=== PATIENT | female | born 1980 | race Asian ===

== ENCOUNTER 2018-10-30 09:53 | Outpatient (CLI) | payer MEDICAID | END 2018-10-30 09:54 | disposition home or self-care (01) | LOC: LAB 09:53 | PROVIDERS: ATTEND Obstetrics & Gynecology | DX: O46.91 Antepartum hemorrhage, unspecified, first trimester (principal) | CPT/HCPCS: 36415; 84702; 86900; 86901 ==

== ENCOUNTER 2018-10-30 22:57 | Outpatient (CLI) | payer MEDICAID ==
--- NOTE | 2018-10-31 01:23 | Ultrasound Report ---
Reason: VAGINAL BLEEDING,FIRST TRIMESTER Procedure Date: 10/30/2018 Accession Number: [id number] / [id number] Procedure: US - OB First Trimester CPT Code: FULL RESULT: EXAM: FIRST TRIMESTER OBSTETRIC ULTRASOUND (Less than 11 weeks) EXAM DATE: 10/30/2018 11:59 PM. CLINICAL HISTORY: VAGINAL BLEEDING,FIRST TRIMESTER. LMP: 08/25/2018. COMPARISONS: None. TECHNIQUE: Transabdominal and transvaginal ultrasound examination with static image documentation. CLINICAL DATES: EGA 9 weeks 4 days with LAURO 06/01/2019 based on LMP. ASSESSMENT: Gestational Sac: Single intrauterine. Mean gestational sac diameter: 24.7 mm = 7 weeks 1 day. Embryo: CRL (crown-rump length) 5.4 mm = 6 weeks 2 days. Cardiac activity: Not seen. Yolk sac: Not seen. Amniotic fluid: Not accurately assessed at this gestational age. Early placenta: Not visible at this gestational age. Other: No perigestational fluid collection demonstrated. MATERNAL STRUCTURES: Uterus: Anteverted. Possible posterior subserosal fibroid measuring 1.1 x 0.9 x 1.6 cm. Cervix: Closed. Right Ovary/Adnexa: The ovary was not seen due to bowel gas. Left Ovary/Adnexa: The ovary measures 2.9 x 1.9 x 2.0 cm, volume 5.0 cc. Possible corpus luteum cyst measuring 1.8 x 1.3 x 1.2 cm. Free Fluid: None. Other: None. IMPRESSION: 1. Single intrauterine at EGA 6 weeks 2 days with LAURO 06/24/2019 based on crown-rump length, which is discordant with clinical dates. 2. No heartbeat is detected. demise is suspected. Consider sonographic follow-up. RADIA The call report notification system was initiated by Dr. Luis Miguel Degroot at 01:22 AM on 10/31/2018. ADDENDUM: 10/31/18 01:29 The above call report findings were discussed with Irena Salazar by Dr. Luis Miguel Degroot at 01:29 AM on 10/31/2018.
== END 2018-10-30 22:58 | disposition home or self-care (01) ==
LOC: DI 22:57
PROVIDERS: ATTEND Obstetrics & Gynecology
DX: O46.91 Antepartum hemorrhage, unspecified, first trimester (principal); Z3A.01 Less than 8 weeks gestation of pregnancy
CPT/HCPCS: 36415; 76801; 76817; 84702; 86900; 86901

== ENCOUNTER 2018-11-02 05:38 | Outpatient (CLI) | payer MEDICAID ==
--- NOTE | 2018-11-02 11:57 | Ultrasound Report ---
Reason: VAGINAL BLEEDING,FIRST TRIMESTER,UTERINE SIZE DATE Procedure Date: 11/02/2018 Accession Number: [id number] / [id number] Procedure: US - OB First Trimester CPT Code: FULL RESULT: EXAM: FIRST TRIMESTER OBSTETRIC ULTRASOUND (Less than 11 weeks) EXAM DATE: 11/02/2018 05:49 AM. CLINICAL HISTORY: Vaginal bleeding, first trimester, uterine size date. LMP: 08/25/2018. COMPARISONS: OB FIRST TRIMESTER 10/30/2018 11:59 PM. TECHNIQUE: Transabdominal and transvaginal ultrasound examination with static image documentation. CLINICAL DATES: EGA 9 weeks 6 days with LAURO 06/01/2019 based on LMP. ASSESSMENT: Gestational Sac: Single intrauterine. Mean gestational sac diameter: 26 mm = weeks/days. Embryo: Potential CRL (crown-rump length) 5 mm = 6 weeks 2 days. Please note that this is the same structure previously measured as a potential crown-rump length. Cardiac activity: None detected. Yolk sac: Not seen. Amniotic fluid: Not accurately assessed at this gestational age. Early placenta: Not visible at this gestational age. Other: No perigestational fluid collection demonstrated. MATERNAL STRUCTURES: Uterus: Anteverted. 1.4 x 0.8 x 1.5 cm subserosal fibroid was noted. Cervix: Closed. Right Ovary/Adnexa: The ovary measures 2.8 x 1.6 x 1.9 cm, volume 4.4 cc. Unremarkable. Left Ovary/Adnexa: The ovary measures 3.1 x 3 x 2.6 cm, volume 12.4 cc. Corpus luteum measuring 2.2 x 1 x 1.8 cm is noted. Free Fluid: None. Other: None. IMPRESSION: Intrauterine of uncertain viability with findings suspicious for failure. Recommend correlation with serial beta hCG and, if appropriate, follow-up ultrasound in 7-10 days to assess for viability. RADIA
== END 2018-11-02 05:39 | disposition home or self-care (01) ==
LOC: DI 05:38
PROVIDERS: ATTEND Obstetrics & Gynecology
DX: O46.91 Antepartum hemorrhage, unspecified, first trimester (principal); O26.841 Uterine size-date discrepancy, first trimester; O34.11 Maternal care for benign tumor of corpus uteri, first trimester; D25.2 Subserosal leiomyoma of uterus; O34.81 Maternal care for other abnormalities of pelvic organs, first trimester; N83.12 Corpus luteum cyst of left ovary; Z3A.01 Less than 8 weeks gestation of pregnancy
CPT/HCPCS: 76801; 76817

== ENCOUNTER 2018-11-08 12:59 | Outpatient (CLI) | payer MEDICAID | END 2018-11-08 13:00 | disposition home or self-care (01) | LOC: LAB 12:59 | PROVIDERS: ATTEND Obstetrics & Gynecology | DX: O20.0 Threatened abortion (principal) | CPT/HCPCS: 36415; 84702 ==

== ENCOUNTER 2018-11-19 12:33 | Outpatient (CLI) | payer MEDICAID ==
--- NOTE | 2018-11-19 19:06 | Ultrasound Report ---
Reason: THREATENED Procedure Date: 11/19/2018 Accession Number: [id number] / [id number] Procedure: US - OB First Trimester CPT Code: FULL RESULT: EXAM: FIRST TRIMESTER OBSTETRIC ULTRASOUND (LESS THAN 11 WEEKS). EXAM DATE: 11/19/2018 02:52 PM. CLINICAL HISTORY: Threatened . LMP: 08/25/2018. COMPARISONS: OB FIRST TRIMESTER 11/02/2018 5:49 AM. TECHNIQUE: Transabdominal and transvaginal ultrasound examination with static image documentation. CLINICAL DATES: EGA 12 weeks 2 days with LAURO 06/01/2019 based on LMP. ASSESSMENT: Gestational Sac: Single intrauterine. Mean gestational sac diameter: 2.9 mm = 7 weeks 5 days. Embryo: None. Previous embryo identified measuring 5 mm. Cardiac activity: None. Yolk sac: None. Amniotic fluid: Not accurately assessed at this gestational age. Early placenta: Not visible at this gestational age. Other: No perigestational fluid collection demonstrated. MATERNAL STRUCTURES: Uterus: Anteverted. Unremarkable. Cervix: Closed. Right Ovary/Adnexa: The ovary measures 3.3 x 1.8 x 2.2 cm. 1.5 x 1.4 x 1.4 cm complex right ovarian cyst with debris and mild peripheral flow. No mural nodules or thickened septations. Left Ovary/Adnexa: The ovary measures 2.9 x 1.8 x 1.9 cm, Unremarkable. Free Fluid: None. Other: None. IMPRESSION: 1. Previously noted embryo not visible on current study. Imaging findings are concerning for demise. 2. No subchorionic hemorrhage or other complications. 3. Mildly complex 1.5 cm right ovary cyst most compatible with a corpus luteum. Otherwise, both ovaries and adnexa are normal. RADIA
== END 2018-11-19 12:34 | disposition home or self-care (01) ==
LOC: DI 12:33
PROVIDERS: ATTEND Obstetrics & Gynecology
DX: O20.0 Threatened abortion (principal); O34.80 Maternal care for other abnormalities of pelvic organs, unspecified trimester; N83.291 Other ovarian cyst, right side; Z3A.00 Weeks of gestation of pregnancy not specified
CPT/HCPCS: 76801

== ENCOUNTER 2019-02-11 14:06 | Outpatient (CLI) | payer MEDICAID ==
--- NOTE | 2019-02-12 09:01 | Ultrasound Report ---
Reason: TEST POSITIVE Procedure Date: 02/11/2019 Accession Number: [id number] / [id number] Procedure: US - OB First Trimester CPT Code: FULL RESULT: EXAM: FIRST TRIMESTER OBSTETRIC ULTRASOUND (Less than 11 weeks) EXAM DATE: 02/11/2019 04:08 PM. CLINICAL HISTORY: test positive. LMP: Unknown. COMPARISONS: OB FIRST TRIMESTER 11/19/2018 2:18 PM. TECHNIQUE: Transabdominal and transvaginal ultrasound examination with static image documentation. CLINICAL DATES: Unknown. ASSESSMENT: Gestational Sac: Single intrauterine. Embryo: CRL (crown-rump length) 28.8 mm = 9 weeks 5 days with an LAURO of 09/11/2019. Cardiac activity: 177 beats per minute. Yolk sac: 6.4 mm. Amniotic fluid: Not accurately assessed at this gestational age. Early placenta: Not visible at this gestational age. Other: No perigestational fluid collection demonstrated. MATERNAL STRUCTURES: Uterus: Anteverted. Hypoechoic subserosal 1.9 x 1.4 x 2.5 cm posterior uterine body fibroid noted. Cervix: Closed. Right Ovary/Adnexa: The ovary measures 3.7 x 2.1 x 2.7 cm, volume 10.9 cc. Hypoechoic 1.2 x 1.2 x 1.4 cm right ovarian cyst. No wall irregularities, mural nodules or thickened septations.. Left Ovary/Adnexa: The ovary measures 3.1 x 1.5 x 2.8 cm, volume 6.8 cc. Unremarkable. Free Fluid: None. Other: None. IMPRESSION: 1. Single viable intrauterine at EGA 9 weeks 5 days with LAURO 09/11/2019 based on crown-rump length. Clinical dates are unknown. 2. Assigned dating is LAURO 09/11/2019 based on current ultrasound. 3. No complications such as a subchorionic hemorrhage. Simple 1.4 cm right ovarian cyst. Otherwise, both ovaries and adnexa are normal. 4. 2.5 cm posterior uterine body subserosal fibroid noted. RADIA
== END 2019-02-11 14:07 | disposition home or self-care (01) ==
LOC: DI 14:06
PROVIDERS: ATTEND Nurse Practitioner Obstetrics & Gynecology
DX: Z32.01 Encounter for pregnancy test, result positive (principal); O34.81 Maternal care for other abnormalities of pelvic organs, first trimester; N83.291 Other ovarian cyst, right side; Z3A.09 9 weeks gestation of pregnancy
CPT/HCPCS: 36415; 76801; 84702

== ENCOUNTER 2019-02-20 16:16 | Outpatient (CLI) | payer MEDICAID ==
[2019-02-21 13:53] LABS: BILIRUBIN,URINE NEGATIVE (NEGATIVE); GLUCOSE, URINE (UA) NEGATIVE (NEGATIVE); KETONES,URINE (UA) NEGATIVE (NEGATIVE); LEUKOCYTE ESTERASE, URINE TRACE (NEGATIVE); NITRITE,URINE NEGATIVE (NEGATIVE); OCCULT BLOOD,URINE NEGATIVE (NEGATIVE); PH,URINE 6.5 PH (5.0-7.5); PROTEIN,URINE NEGATIVE (NEGATIVE); UROBILINOGEN,URINE 0.2 (NORMAL) E.U./dL (NORMAL)
[2019-02-21 14:05] LABS: BACTERIA,URINE None Seen /HPF (None Seen); CLARITY,URINE CLEAR (CLEAR); RBC,URINE None Seen /HPF (0-5); SQUAMOUS EPITHELIAL CELL,UR RARE Squamous (<= Few)
== END 2019-02-20 23:59 | disposition home or self-care (01) ==
LOC: LAB.R 16:16
PROVIDERS: ATTEND Nurse Practitioner Obstetrics & Gynecology
DX: Z36.89 Encounter for other specified antenatal screening (principal)
CPT/HCPCS: 80306; 81001; 87086

== ENCOUNTER 2019-02-27 09:52 | Outpatient (CLI) | payer MEDICAID ==
[2019-02-27 10:32] LABS: BASOPHILS % (AUTO) 0.6 %; EOSINOPHILS # (AUTO) 0.1 10^3/uL (0.0-0.7); EOSINOPHILS % (AUTO) 1.2 %; HGB - HEMOGLOBIN 13.2 g/dL (12.0-16.0); LYMPHOCYTES # (AUTO) 1.7 10^3/uL (1.5-3.5); LYMPHOCYTES % (AUTO) 23.7 %; MEAN CORPUSCULAR HEMOGLOBIN 29.6 pg (27.0-31.0); MEAN CORPUSCULAR HGB CONC 33.3 g/dL (32.0-36.0); MEAN CORPUSCULAR VOLUME 88.8 fL (81.0-99.0); MEAN PLATELET VOLUME 9.6 fL (7.9-10.8); MONOCYTES # (AUTO) 0.5 10^3/uL (0.0-1.0); MONOCYTES % (AUTO) 7.5 %; NEUTROPHILS # (AUTO) 4.8 10^3/uL (1.5-6.6); NEUTROPHILS % (AUTO) 66.3 %; PLT - PLATELET COUNT 322 10^3/uL (130-450); RED BLOOD COUNT 4.46 10^6/uL (4.20-5.40); RED CELL DISTRIBUTION WIDTH 12.2 % (12.0-15.0); WHITE BLOOD COUNT 7.2 x10^3/uL (4.8-10.8)
[2019-02-27 10:46] LABS: CREATININE 0.7 mg/dL (0.4-1.0); URIC ACID 5.2 mg/dL (2.6-7.2)
[2019-02-27 10:52] LABS: CREATININE,URINE < 13.0 mg/dL; TOTAL PROTEIN,URINE TIMED < 6 mg/dL
[2019-02-27 10:56] LABS: HB2 TOTAL 14.1 g/dL; HEMOGLOBIN A1C 0.6 g/dL
[2019-02-28 10:12] LABS: HIV AG/AB 4TH GEN NON-REACTIVE (NON-REACTIVE)
[2019-02-28 12:18] LABS: HEPATITIS C ANTIBODY NON-REACTIVE (NON-REACTIVE)
[2019-02-28 12:19] LABS: HEPATITIS B SURFACE ANTIGEN NON-REACTIVE (NON-REACTIVE)
== END 2019-02-27 09:53 | disposition home or self-care (01) ==
LOC: LAB 09:52
PROVIDERS: ATTEND Nurse Practitioner Obstetrics & Gynecology
DX: R03.0 Elevated blood-pressure reading, without diagnosis of hypertension (principal); Z36.89 Encounter for other specified antenatal screening
CPT/HCPCS: 36415; 81599; 82565; 82570; 83036; 83615; 84156; 84443; 84450; 84550; 85025; 86592; 86762; 86803; 86850; 86900; 86901; 87340; 87389

== ENCOUNTER 2019-03-01 13:28 | Outpatient (CLI) | payer MEDICAID ==
[2019-03-01 15:00] LABS: FREE T4 (FREE THYROXINE) 1.06 ng/dL (0.58-1.64); T4 (THYROXINE) 10.74 ug/dL (6.09-12.23); THYROID STIMULATING HORMONE < 0.08 uIU/mL (0.34-5.60)
== END 2019-03-01 13:29 | disposition home or self-care (01) ==
LOC: LAB 13:28
PROVIDERS: ATTEND Obstetrics & Gynecology
DX: O09.529 Supervision of elderly multigravida, unspecified trimester (principal)
CPT/HCPCS: 36415; 84436; 84439; 84443; 84480

== ENCOUNTER 2019-04-27 10:00 | Outpatient (CLI) | payer MEDICAID ==
--- NOTE | 2019-04-27 14:33 | Ultrasound Report ---
Reason: HTN IN Procedure Date: 04/27/2019 Accession Number: [id number] / [id number] Procedure: US - OB Detailed Eval CPT Code: FULL RESULT: EXAM: COMPLETE OBSTETRICAL ULTRASOUND EXAM DATE: 04/27/2019 12:01 PM. CLINICAL HISTORY: anatomic survey. Maternal hypertension. COMPARISON: None. TECHNIQUE: Real-time sonographic evaluation of the fetus performed by the dryerman/woman. Multiple insurance representative static images were saved for review. Transabdominal imaging only. DATING: Established EGA 20 weeks 3 days with LAURO 09/11/2019 based on previous ultrasound. EGA 20 weeks 3 days with LAURO 09/11/2019 based on referring physician provided. EGA 20 weeks 4 days with LAURO 09/10/2019 based on the current ultrasound. GENERAL EVALUATION Magallanes . Cardiac activity: 150 bpm. movement: Visualized. Presentation: Breech anterior Placenta: Anterior position. No evidence for previa. The inferior tip of the placenta is low-lying and approximately 1.4 cm from the internal os. Umbilical cord: 3 vessel cord. Eccentric placental cord origin. Amniotic fluid: Subjectively normal. MVP 5.5 cm. BIOMETRY Bi-Parietal Diameter (BPD): 4.9 cm, 20 weeks 6 days Head Circumference (HC): 18.2 cm, 20 weeks 4 days Abdominal Circumference (AC): 16.0 cm, 21 weeks 1 day Femur Length (FL): 3.3 cm, 20 weeks 1 day Estimated Weight: 371 g, 60.2 percentile for 20 weeks 2 days. ANATOMY The intracranial structures, profile, face/nose/lips, spine, 4 chamber heart and outflow tracts, abdominal wall and cord insertion, diaphragm, kidneys, bladder, and extremities were visualized and demonstrate no abnormality. There is debris present within the stomach of unknown etiology. MATERNAL STRUCTURES Uterus: There is redemonstration of a heterogeneous posterior right intramural uterine mass measuring 1.9 x 1.5 x 3.0 cm, most likely representing a fibroid. Cervix: Long and closed. Transabdominal length 4.9 cm. Right ovary/adnexa: Unremarkable. Left ovary/adnexa: Unremarkable. Free fluid: None. IMPRESSION: 1. Magallanes live intrauterine with gestational age 20 weeks 4 days based on current ultrasound. 2. Estimated weight is within expected limits for assigned dating. 3. There is debris within the stomach of unknown etiology. Otherwise, normal anatomic survey. No anatomic abnormalities are detected at this time. 4. There has been no change in the presumed approximate 1.9 cm maximal diameter posterior intramural uterine fibroid. RADIA
== END 2019-04-27 10:01 | disposition home or self-care (01) ==
LOC: DI 10:00
PROVIDERS: ATTEND Obstetrics & Gynecology
DX: O34.12 Maternal care for benign tumor of corpus uteri, second trimester (principal); D25.1 Intramural leiomyoma of uterus; O16.2 Unspecified maternal hypertension, second trimester; Z3A.20 20 weeks gestation of pregnancy
CPT/HCPCS: 76811

== ENCOUNTER 2019-05-04 09:56 | Outpatient (CLI) | payer MEDICAID ==
[2019-05-04 10:20] LABS: HGB - HEMOGLOBIN 12.6 g/dL (12.0-16.0); MEAN CORPUSCULAR HEMOGLOBIN 30.5 pg (27.0-31.0); MEAN CORPUSCULAR HGB CONC 31.5 g/dL (32.0-36.0); MEAN CORPUSCULAR VOLUME 96.9 fL (81.0-99.0); MEAN PLATELET VOLUME 9.9 fL (7.9-10.8); RED BLOOD COUNT 4.13 10^6/uL (4.20-5.40); RED CELL DISTRIBUTION WIDTH 12.2 % (12.0-15.0); WHITE BLOOD COUNT 7.1 x10^3/uL (4.8-10.8)
[2019-05-04 10:31] LABS: ALBUMIN 3.5 g/dL (3.2-5.5); ALBUMIN/GLOBULIN RATIO 0.9 (1.0-2.2); BILIRUBIN,TOTAL 0.3 mg/dL (0.2-1.0); CALCIUM 9.4 mg/dL (8.5-10.3); CREATININE 0.6 mg/dL (0.4-1.0); TOTAL PROTEIN 7.3 g/dL (6.7-8.2)
[2019-05-04 10:40] LABS: CREATININE,URINE 18.5 mg/dL
[2019-05-04 10:43] LABS: TOTAL PROTEIN,URINE TIMED < 6 mg/dL
== END 2019-05-04 09:57 | disposition home or self-care (01) ==
LOC: LAB 09:56
PROVIDERS: ATTEND Obstetrics & Gynecology
DX: O16.9 Unspecified maternal hypertension, unspecified trimester (principal)
CPT/HCPCS: 36415; 80053; 82570; 84156; 85027

== ENCOUNTER 2019-06-14 14:10 | Outpatient (CLI) | payer MEDICAID ==
[2019-06-14 15:04] LABS: CREATININE,URINE 19.1 mg/dL; TOTAL PROTEIN,URINE TIMED < 6 mg/dL
[2019-06-14 15:36] LABS: HGB - HEMOGLOBIN 12.6 g/dL (12.0-16.0); MEAN CORPUSCULAR HEMOGLOBIN 29.5 pg (27.0-31.0); MEAN CORPUSCULAR HGB CONC 32.5 g/dL (32.0-36.0); MEAN CORPUSCULAR VOLUME 90.9 fL (81.0-99.0); MEAN PLATELET VOLUME 8.7 fL (7.9-10.8); RED BLOOD COUNT 4.27 10^6/uL (4.20-5.40); RED CELL DISTRIBUTION WIDTH 12.2 % (12.0-15.0)
[2019-06-14 15:49] LABS: ALBUMIN 3.4 g/dL (3.2-5.5); ALBUMIN/GLOBULIN RATIO 0.8 (1.0-2.2); BILIRUBIN,TOTAL 0.5 mg/dL (0.2-1.0); CREATININE 0.6 mg/dL (0.4-1.0); TOTAL PROTEIN 7.9 g/dL (6.7-8.2)
== END 2019-06-14 14:11 | disposition home or self-care (01) ==
LOC: LAB 14:10
PROVIDERS: ATTEND Obstetrics & Gynecology
DX: O16.9 Unspecified maternal hypertension, unspecified trimester (principal); Z36.89 Encounter for other specified antenatal screening
CPT/HCPCS: 36415; 80053; 82570; 82950; 84156; 85027

== ENCOUNTER 2019-07-06 13:00 | Outpatient (CLI) | payer MEDICAID | END 2019-07-06 13:01 | disposition home or self-care (01) | LOC: NS 13:00 | PROVIDERS: ATTEND Obstetrics & Gynecology | DX: Z53.9 Procedure and treatment not carried out, unspecified reason (principal) ==

== ENCOUNTER 2019-07-20 13:58 | Outpatient (CLI) | payer MEDICAID ==
[2019-07-20 14:25] VITALS: BP 139/82
--- NOTE | 2019-07-21 01:16 | Ultrasound Report ---
Reason: WEEKLY DIANA. GESTATIONAL DIABETES,HTN IN ,ADVANCE MAT AGE Procedure Date: 07/20/2019 Accession Number: [id number] / [id number] Procedure: US - OB Limited CPT Code: Addended Final Report FULL RESULT: EXAM: LIMITED OBSTETRICAL ULTRASOUND EXAM DATE: 07/20/2019 04:12 PM. CLINICAL HISTORY: WEEKLY DIANA. GESTATIONAL DIABETES,HTN IN , ADVANCE MAT AGE. COMPARISON: OB DETAILED EVAL 04/27/2019 10:05 AM. TECHNIQUE: Real-time transabdominal sonographic evaluation of the fetus performed by the wet process miller head. Multiple retail account representative static images were saved for review. DATING: Established EGA 32 weeks 3 days with LAURO 09/11/2019. GENERAL EVALUATION Magallanes . Cardiac activity: 140-144 bpm. movement: Visualized. Presentation: Cephalic. Placenta: Anterior position. Amniotic fluid: Borderline oligohydramnios. DIANA 5.6-7.6 cm. MVP 2.0-2.71 cm. Umbilical Artery SD Ratio: 3.7 (proximal), 4.3 (mid), and 2.7 (distal). Umbilical Artery RI: 0.7 (proximal), 0.8 (mid), and 0.6 (distal). ANATOMY Not assessed on limited scan. MATERNAL STRUCTURES Cervix long and closed. IMPRESSION: 1. Magallanes live intrauterine with gestational age 32 weeks 3 days based on established LAURO. 2. Elevated SD ratio and RI in proximal and mid portions of umbilical artery, measuring up to 4.3 and 0.8 in midportion respectively. Findings may indicate placental insufficiency. 3. Borderline oligohydramnios with amniotic fluid index measuring 5.6-7.6 cm. MVP measures 2.0-2.71 cm. MARILU The call report notification system was initiated by Dr. Kimberli Coburn at 01:09 AM on 07/21/2019. Findings discussed with Dr. Garcia at 8:00 AM on 07/21/2019.
--- NOTE | 2019-08-01 04:28 | PROCEDURE REPORT ---
- HPI Diagnosis/Indication for NST: Oligohydramnios (AMA. GDM, HTN, oligohydramnios) Current EDU 09/11/19 Gestation 32 Weeks and 3 Days 3 Para 1 Vital Signs Temperature 98.1 F 07/20/19 14:24 Heart Rate 68 07/20/19 14:24 Respiratory Rate 18 07/20/19 14:24 Blood Pressure 139/82 H 07/20/19 14:24 O2 Saturation 100 07/20/19 14:24 Temperature 98.1 F 07/20/19 14:24 Heart Rate 68 07/20/19 14:24 Respiratory Rate 18 07/20/19 14:24 Blood Pressure 139/82 H 07/20/19 14:24 O2 Saturation 100 07/20/19 14:24 - NST Procedure NST Procedure Start Date 07/20/19 Start Time 14:20 Stop Time 14:53 Vibroacoustic Stimulation Used No Patient States Movement Yes - Results and Plan Findings/Impression: NST was reviewed and intepreted by Dr. Garcia, on-call physician on 07/20/19 Read as a category I tracing Patient was discharged and then later transferred to [facility] for further management of oligohydramnios
== END 2019-07-20 15:10 | disposition home or self-care (01) ==
LOC: WFO 13:58 → FBP 14:09 → WFO 15:10
PROVIDERS: ATTEND Obstetrics & Gynecology
DX: O24.419 Gestational diabetes mellitus in pregnancy, unspecified control (principal); O16.3 Unspecified maternal hypertension, third trimester; O41.03X0 Oligohydramnios, third trimester, not applicable or unspecified; O09.523 Supervision of elderly multigravida, third trimester; Z3A.32 32 weeks gestation of pregnancy
CPT/HCPCS: 59025; 76815

== ENCOUNTER 2019-07-23 08:51 | Outpatient (CLI) | payer MEDICAID ==
[2019-07-23 09:08] VITALS: BP 136/81
--- NOTE | 2019-07-23 09:48 | PROCEDURE REPORT ---
- HPI Diagnosis/Indication for NST: Other (Chronic HTN, AMA) Current EDU 09/11/19 Gestation 32 Weeks and 6 Days 3 Para 1 Vital Signs Temperature 98.2 F 07/23/19 09:05 Heart Rate 68 07/23/19 09:05 Respiratory Rate 16 07/23/19 09:05 Blood Pressure 136/81 H 07/23/19 09:05 Temperature 98.2 F 07/23/19 09:05 Heart Rate 68 07/23/19 09:05 Respiratory Rate 16 07/23/19 09:05 Blood Pressure 136/81 H 07/23/19 09:05 O2 Saturation - NST Procedure NST Procedure Start Date 07/23/19 Start Time 09:03 Stop Time 09:31 Vibroacoustic Stimulation Used No Patient States Movement Yes Reactive, Category 1. No contractions - Results and Plan Findings/Impression: 39yo at 32 6/7 here for scheduled NST secondary to AMA, chronic HTN and GDM. She has no complaints, reports normal activity. DIANA done = 6.1 with deepest pocket 3.24cm Vertex, anterior placenta Plan: 39yo with persistent borderline oligohydramnios. Elevated cord dopplers on previous scan. Pt continues on labetalol, aspirin, metformin, and PN vits. MFM consult at [facility] requested. Will DC pt now, call her later to[facility] with appointment.
== END 2019-07-23 09:40 | disposition home or self-care (01) ==
LOC: WFO 08:51 → FBP 08:54 → WFO 09:40
PROVIDERS: ATTEND Obstetrics & Gynecology
DX: O10.913 Unspecified pre-existing hypertension complicating pregnancy, third trimester (principal); O24.419 Gestational diabetes mellitus in pregnancy, unspecified control; O09.523 Supervision of elderly multigravida, third trimester; O41.03X0 Oligohydramnios, third trimester, not applicable or unspecified; Z3A.32 32 weeks gestation of pregnancy
CPT/HCPCS: 59025

== ENCOUNTER 2022-09-18 09:30 | Outpatient (CLI) | payer OTHER ==
[2022-09-18 18:56] LABS: BASOPHILS # (AUTO) 0.1 10^3/uL (0.0-0.1); BASOPHILS % (AUTO) 1.5 %; EOSINOPHILS # (AUTO) 0.1 10^3/uL (0.0-0.7); EOSINOPHILS % (AUTO) 3.2 %; HCT - HEMATOCRIT 38.3 % (37.0-47.0); HGB - HEMOGLOBIN 11.9 g/dL (12.0-16.0); LYMPHOCYTES # (AUTO) 1.6 10^3/uL (1.5-3.5); LYMPHOCYTES % (AUTO) 45.6 %; MEAN CORPUSCULAR HEMOGLOBIN 26.4 pg (27.0-31.0); MEAN CORPUSCULAR HGB CONC 31.1 g/dL (32.0-36.0); MEAN CORPUSCULAR VOLUME 84.9 fL (81.0-99.0); MEAN PLATELET VOLUME 10.2 fL (7.9-10.8); MONOCYTES # (AUTO) 0.5 10^3/uL (0.0-1.0); MONOCYTES % (AUTO) 13.1 %; NEUTROPHILS # (AUTO) 1.3 10^3/uL (1.5-6.6); NEUTROPHILS % (AUTO) 36.6 %; PLT - PLATELET COUNT 388 10^3/uL (130-450); RED BLOOD COUNT 4.51 10^6/uL (4.20-5.40); RED CELL DISTRIBUTION WIDTH 12.9 % (12.0-15.0); WHITE BLOOD COUNT 3.4 x10^3/uL (4.8-10.8)
[2022-09-18 19:20] LABS: ALBUMIN 3.8 g/dL (3.2-5.5); ALBUMIN/GLOBULIN RATIO 1.1 (1.0-2.2); ALKALINE PHOSPHATASE 62 IU/L (42-121); ALT ALANINE AMINOTRANSFERASE 23 IU/L (10-60); AST ASPARTATE AMINOTRANSFERASE 25 IU/L (10-42); BUN - BLOOD UREA NITROGEN 11 mg/dL (6-20); CALCIUM 8.9 mg/dL (8.5-10.3); CARBON DIOXIDE - CO2 26 mmol/L (21-32); CHLORIDE 102 mmol/L (101-111); CHOL/HDL RATIO 3.6 (<4.4); CHOLESTEROL 208 mg/dL; CREATININE 0.7 mg/dL (0.4-1.0); GFR - MDRD 91 (>89); GLUCOSE 102 mg/dL (70-100); HDL CHOLESTEROL 58 mg/dL; LDL CHOLESTEROL,CALCULATED 126 mg/dL; LDL/HDL RATIO 2.2 (<4.4); POTASSIUM 3.6 mmol/L (3.5-5.0); SODIUM 137 mmol/L (135-145); TOTAL PROTEIN 7.4 g/dL (6.7-8.2); TRIGLYCERIDES 119 mg/dL; VLDL CHOLESTEROL 24 mg/dL
[2022-09-18 19:25] LABS: THYROID STIMULATING HORMONE 0.86 uIU/mL (0.34-5.60)
[2022-09-18 21:36] LABS: ESTIMATED AVERAGE GLUCOSE 128 mg/dL (70-100); HEMOGLOBIN A1c% 6.1 % (4.27-6.07)
== END 2022-09-18 09:31 | disposition home or self-care (01) ==
LOC: LAB.N 09:30
PROVIDERS: ATTEND Nurse Practitioner Family
DX: Z00.00 Encounter for general adult medical examination without abnormal findings (principal); I10 Essential (primary) hypertension; Z13.220 Encounter for screening for lipoid disorders; Z86.32 Personal history of gestational diabetes
CPT/HCPCS: 36415; 80053; 80061; 83036; 83721; 84443; 85025

== ENCOUNTER 2022-11-22 10:50 | Outpatient (CLI) | payer OTHER ==
--- NOTE | 2022-11-23 10:24 | Mammography Report ---
BILATERAL DIGITAL SCREENING MAMMOGRAM 3D/2D: 11/22/2022 CLINICAL: Baseline exam. Routine screening. No prior exams were available for comparison. Both breasts are heterogeneously dense, which may obscure small masses (category c / 51-75% glandular tissue). No significant masses, calcifications, or other findings are seen in either breast. IMPRESSION: NEGATIVE There is no mammographic evidence of malignancy. A 1 year screening mammogram is recommended. Based on the Tyrer Cuzick model (a risk assessment model) the patients lifetime risk is 15.5% and he r 10 year risk is 2.7%. According to the ACR, ACS, and NCCN guidelines, an annual breast MRI exam tereza ng with mammogram is recommended if the patients lifetime risk is 20% or greater. This exam was interpreted at Station ID: [id number]. NOTE: For mammograms, a report in lay terms will be sent to the patient. Approximately 15% of breast malignancies will not be visualized mammographically. In the management of a palpable breast mass, a negative mammogram must not discourage biopsy of a clinically suspicious lesion. Electronically Signed By: Dmitri sheth/jean claude:11/22/2022 14:32:01 letter sent: No_Letter ACR BI-RADS Category 1: Negative 3341F PARENCHYMAL PATTERN: (D) - The breast(s) demonstrate(s) heterogeneously dense fibroglandular parcarl abdullahi. BI-RADS CATEGORY: (1) - 1 Mammogram [id number] 1 year screening LATERALITY: (B)
== END 2022-11-22 10:51 | disposition home or self-care (01) ==
LOC: DI.N 10:50
DX: Z12.31 Encounter for screening mammogram for malignant neoplasm of breast (principal)

== ENCOUNTER 2024-02-28 16:24 | Outpatient (CLI) | payer OTHER ==
[2024-02-28 19:16] LABS: BASOPHILS # (AUTO) 0.1 10^3/uL (0.0-0.1); BASOPHILS % (AUTO) 0.9 %; EOSINOPHILS # (AUTO) 0.1 10^3/uL (0.0-0.7); EOSINOPHILS % (AUTO) 1.3 %; HCT - HEMATOCRIT 41.9 % (37.0-47.0); HGB - HEMOGLOBIN 13.6 g/dL (12.0-16.0); LYMPHOCYTES # (AUTO) 1.9 10^3/uL (1.5-3.5); LYMPHOCYTES % (AUTO) 34.3 %; MEAN CORPUSCULAR HEMOGLOBIN 29.4 pg (27.0-31.0); MEAN CORPUSCULAR HGB CONC 32.5 g/dL (32.0-36.0); MEAN CORPUSCULAR VOLUME 90.7 fL (81.0-99.0); MEAN PLATELET VOLUME 9.7 fL (7.9-10.8); MONOCYTES # (AUTO) 0.5 10^3/uL (0.0-1.0); MONOCYTES % (AUTO) 8.2 %; NEUTROPHILS % (AUTO) 54.9 %; PLT - PLATELET COUNT 335 10^3/uL (130-450); RED BLOOD COUNT 4.62 10^6/uL (4.20-5.40); RED CELL DISTRIBUTION WIDTH 12.3 % (12.0-15.0); WHITE BLOOD COUNT 5.5 x10^3/uL (4.8-10.8)
[2024-02-28 19:38] LABS: ALBUMIN 4.6 g/dL (3.2-5.5); ALBUMIN/GLOBULIN RATIO 1.5 (1.0-2.2); ALKALINE PHOSPHATASE 43 IU/L (42-121); ALT ALANINE AMINOTRANSFERASE 15 IU/L (10-60); AST ASPARTATE AMINOTRANSFERASE 18 IU/L (10-42); BILIRUBIN,TOTAL 0.4 mg/dL (0.2-1.0); BUN - BLOOD UREA NITROGEN 12 mg/dL (6-20); CALCIUM 9.5 mg/dL (8.5-10.3); CARBON DIOXIDE - CO2 26 mmol/L (21-32); CHLORIDE 102 mmol/L (101-111); CHOL/HDL RATIO 2.6 (<4.4); CHOLESTEROL 199 mg/dL; CREATININE 0.7 mg/dL (0.6-1.3); GFR - MDRD 90 (>89); GLUCOSE 96 mg/dL (74-104); HDL CHOLESTEROL 77 mg/dL; LDL CHOLESTEROL,CALCULATED 103 mg/dL; LDL/HDL RATIO 1.3 (<4.4); POTASSIUM 4.1 mmol/L (3.5-4.5); SODIUM 135 mmol/L (135-145); TOTAL PROTEIN 7.7 g/dL (6.4-8.9); TRIGLYCERIDES 96 mg/dL; VLDL CHOLESTEROL 19 mg/dL
[2024-02-28 19:43] LABS: THYROID STIMULATING HORMONE 0.88 uIU/mL (0.34-5.60)
[2024-02-28 22:24] LABS: ESTIMATED AVERAGE GLUCOSE 114 mg/dL (70-100); HEMOGLOBIN A1c% 5.6 % (4.27-6.07)
== END 2024-02-28 16:25 | disposition home or self-care (01) ==
LOC: LAB.N 16:24
PROVIDERS: ATTEND Nurse Practitioner Family
DX: I10 Essential (primary) hypertension (principal); Z13.220 Encounter for screening for lipoid disorders; R73.03 Prediabetes
CPT/HCPCS: 36415; 80053; 80061; 83036; 83721; 84443; 85025

== ENCOUNTER 2024-03-13 14:08 | Outpatient (CLI) | payer OTHER ==
--- NOTE | 2024-03-16 15:35 | Mammography Report ---
BILATERAL DIGITAL SCREENING MAMMOGRAM 3D/2D: 03/13/2024 CLINICAL: Routine screening. Comparison is made to exam dated: 11/22/2022 mammogram - [facility]. Both breasts are heterogeneously dense, which may obscure small masses (category c / 51-75% glandular tissue). No significant masses, calcifications, or other findings are seen in either breast. There has been no significant interval change. IMPRESSION: NEGATIVE There is no mammographic evidence of malignancy. A 1 year screening mammogram is recommended. Based on the Tyrer Cuzick model (a risk assessment model) the patient's lifetime risk is 14.7% and he r 10 year risk is 2.9%. According to the ACR, ACS, and NCCN guidelines, an annual breast MRI exam tereza ng with mammogram is recommended if the patient's lifetime risk is 20% or greater. This exam was interpreted at Station ID: [id number]. NOTE: For mammograms, a report in lay terms will be sent to the patient. Approximately 15% of breast malignancies will not be visualized mammographically. In the management of a palpable breast mass, a negative mammogram must not discourage biopsy of a clinically suspicious lesion. Electronically Signed By: Ruth Ann Govea M.D., Ph.D. eb/jean claude:03/15/2024 17:05:19 letter sent: No_Letter ACR BI-RADS Category 1: Negative 3341F PARENCHYMAL PATTERN: (D) - The breast(s) demonstrate(s) heterogeneously dense fibroglandular juan c abdullahi. BI-RADS CATEGORY: (1) - 1 RECOMMENDATION: (ANNUAL) - Recommend routine annual screening mammography. [id number] 1 year screening LATERALITY: (B)
== END 2024-03-13 14:09 | disposition home or self-care (01) ==
LOC: DI 14:08
DX: Z12.31 Encounter for screening mammogram for malignant neoplasm of breast (principal); R92.333 Mammographic heterogeneous density, bilateral breasts